=== PATIENT | female | born 1960 | race Caucasian/White ===

== ENCOUNTER 2018-04-21 14:34 | Emergency (ER) | payer OTHER ==
[~2018-04-21] VITALS: Ht 175.3 cm; Wt 103.9 kg
--- NOTE | ~2018-04-21 | EKG ---
[address] [place] [address] ELECTROCARDIOGRAM REPORT Name: SARA SANTIAGO 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 : 1960 Requested By: Sowmya Wright Order Number: [id number] MD: Vincenzo Garcia Measurements Intervals Russell Rate: 64 P: 41 NV: 189 QRS: 7 QRSD: 81 T: 64 QT: 461 QTc: 476 Interpretive Statements Sinus rhythm Borderline prolonged QT interval Nonspecific ST segment abnormality No previous ECG available for comparison Electronically Signed On 04-21-2018 16:41:29 CDT by Vincenzo Garcia [email or web address] <ELECTRONICALLY SIGNED> By: Vincenzo Garcia MD, [facility] 04/21/18 1641 1443 1443 Vincenzo Garcia MD, FACC /EPI
[2018-04-21 16:17] LABS: HEMATOCRIT 39.3 % (37.0-47.0); HEMOGLOBIN 13.8 gm/dL (12.0-15.0); MCH 30.8 pg (26.0-34.0); MCHC 35.2 g/dL (28.0-37.0); MCV 87.5 fL (80.0-100.0); RBC 4.49 mil/uL (4.20-5.00); RDW 12.5 % (10.5-14.5); WBC 8.7 thou/uL (4.0-11.0)
[2018-04-21 16:24] LABS: ANION GAP 9 mmol/L (7-16); BUN 20 mg/dL (7-18); CALCIUM 9.8 mg/dL (8.5-10.1); CHLORIDE 98 mmol/L (98-107); CO2 25 mmol/L (21-32); CREATININE 0.9 mg/dL (0.6-1.0); GLUCOSE 296 mg/dL (74-106); POTASSIUM 4.2 mmol/L (3.5-5.1); SODIUM 132 mmol/L (136-145)
[2018-04-21 16:35] LABS: TROPONIN-I <0.06 ng/mL (<0.06)
[2018-04-21] MEDS ORDERED: CELEXA40 MG PO (16:41)
[2018-04-21] MEDS ORDERED: CARVEDILOL12.5 MG PO (16:41)
[2018-04-21] MEDS ORDERED: LISINOPRIL-HCT1 EAC2 PO (16:42)
[2018-04-21] MEDS ORDERED: AMARYL2 MG PO (16:43)
[2018-04-21] MEDS ORDERED: ASPIR-TRIN325 MG PO (16:43)
[2018-04-21] MEDS ORDERED: MOBIC15 MG PO (16:43)
[2018-04-21] MEDS ORDERED: BUSPIRONE HCL5 MG (16:44)
[2018-04-21] MEDS ORDERED: TRAMADOL 50 MG50 MG PO (16:45)
[2018-04-21] MEDS ORDERED: METFORMIN HCL500 MG PO (16:47)
[2018-04-21 18:17] LABS: URINE BILIRUBIN NEGATIVE (Negative); URINE BLOOD TRACE (Negative); URINE CLARITY CLEAR; URINE COLOR YELLOW; URINE GLUCOSE-RANDOM* 3+ (Negative); URINE KETONES NEGATIVE (Negative); URINE LEUKOCYTES-REFLEX NEGATIVE (Negative); URINE NITRITE-REFLEX NEGATIVE (Negative); URINE PROTEIN (DIPSTICK) NEGATIVE (Negative); URINE SPECIFIC GRAVITY 1.025 (1.005-1.035); URINE UROBILINOGEN 0.2 E.U./dl (0.2-1.0)
[2018-04-21 20:00] VITALS: BP 164/63
== END 2018-04-21 20:00 | disposition home or self-care (01) ==
LOC: ER 14:34
PROVIDERS: Physician Assistant
DX: I10 Essential (primary) hypertension (principal); R42 Dizziness and giddiness; F17.200 Nicotine dependence, unspecified, uncomplicated; E11.9 Type 2 diabetes mellitus without complications; F32.9 Major depressive disorder, single episode, unspecified; F41.9 Anxiety disorder, unspecified; J45.909 Unspecified asthma, uncomplicated; M19.90 Unspecified osteoarthritis, unspecified site; Z88.5 Allergy status to narcotic agent; Z88.0 Allergy status to penicillin